=== PATIENT | male | born 1965 | race African-American/Black ===

== ENCOUNTER 2024-01-19 22:21 | Emergency (ER) | payer BC ==
[~2024-01-19] VITALS: Ht 190.5 cm; Wt 108.0 kg
[2024-01-19 22:44] VITALS: TEMP 98.7; O2SAT 99
[2024-01-20] MEDS ORDERED: LIDO700A15 TP (01:40)
[2024-01-20] MEDS ORDERED: NAPR-1176 MT (01:40)
[2024-01-20] MEDS: KETOROLAC 15MG/ML VIAL IM ONE (02:51)
[2024-01-20 02:52] VITALS: BP 175/115; PULSE 84; RESP 18
[2024-01-20] MEDS: KETOROLAC 15MG/ML VIAL IM NR (02:52)
[2024-01-20] MEDS ORDERED: CYCL5TAB MT (02:53)
== END 2024-01-20 02:56 | disposition home or self-care (01) ==
LOC: ER 22:21
DX: M54.6 Pain in thoracic spine (principal); M54.2 Cervicalgia; I10 Essential (primary) hypertension; V49.49XA Driver injured in collision with other motor vehicles in traffic accident, initial encounter; Y93.89 Activity, other specified; Y92.89 Other specified places as the place of occurrence of the external cause; Y99.8 Other external cause status
CPT/HCPCS: 99283